=== PATIENT | male | born 1960 | race Caucasian/White ===

== ENCOUNTER → 2016-10-05 | Outpatient (CLI) | payer BC ==
[~2016-10-05] MED LIST: IOHEXOL 240 MG/ML 50ML VIAL. ONE; IOHEXOL 300 MG/ML 75 ML VIAL. IV ONE
--- NOTE | 2016-10-05 11:39 | RAD ---
Indication: Abdominal pain for one month with nausea and vomiting. Axial imaging through the abdomen and pelvis was performed after the administration of intravenous contrast. No prior studies are available for comparison. The lung bases are clear. There is a 15 mm low density in the right lobe the liver near the dome, likely a small cyst. No other liver mass is detected. The gallbladder is unremarkable. The pancreas and spleen are unremarkable. No adrenal mass is detected. Left kidney contains an 18 mm low density in the lower pole, likely a small cyst. The aorta is nonaneurysmal. No central retroperitoneal or mesenteric lymphadenopathy is detected. The small and large bowel loops are normal caliber. There is no ascites. The bladder and prostate are unremarkable. No pelvic lymphadenopathy is detected. Impression: Hepatic and renal cysts. The study is otherwise unremarkable. No acute feature is detected. PQRS Compliance Statement: One or more of the following individualized dose reduction techniques were utilized for this examination: 1. Automated exposure control 2. Adjustment of the mA and/or kV according to patient size 3. Use of iterative reconstruction technique
== END | disposition home or self-care (01) ==
LOC: CT 09:49
PROVIDERS: ATTEND Physician Assistant Medical
DX: N28.1 Cyst of kidney, acquired (principal)
CPT/HCPCS: 74177; Q9966; Q9967

== ENCOUNTER → 2016-10-12 | Outpatient (CLI) | payer BC ==
--- NOTE | 2016-10-12 10:28 | CARD ---
APPROVED REPORT EXAM: Two-dimensional and M-mode echocardiogram with Doppler and color Doppler. Other Information Quality : GoodHR: 57bpm Rhythm : Bradycardia INDICATION Tachycardia 2D DIMENSIONS RVDd3.3 (2.9-3.5cm)Left Atrium(2D)3.5 (1.6-4.0cm) IVSd0.8 (0.7-1.1cm)Aortic Root(2D)2.9 (2.0-3.7cm) LVDd4.2 (3.9-5.9cm)LVOT Diameter2.3 (1.8-2.4cm) PWd0.9 (0.7-1.1cm)LVDs2.7 (2.5-4.0cm) FS (%) 35.3 %SV52.1 ml LVEF(%)65.0 (>50%) Aortic Valve AoV Peak Rey.126.0cm/sAoV VTI28.5cm AO Peak GR.6.3mmHgLVOT Peak Rey.102.8cm/s LVOT VTI 22.85cmAO Mean GR.3mmHg ANA (VMAX)3.36wv3KPI (VTI)3.27cm2 Mitral Valve MV E Yvcacfjr31.0cm/sMV E Peak Gr.3mmHg MV DECEL [id number] A Kvvbqgqy50.0cm/s MV E Mean Gr.1mmHgE/A Ratio1.3 MV A [id number] Pulmonary Valve PV Peak Ctbpgmuo98.8cm/sPV Peak Grad.3mmHg Tricuspid Valve TR P. Nbfgcabj137de/sTR Peak Gr.26mmHg Pulmonary Vein S1 Ebnqafqe44.5cm/sD2 Mycpunxf27.1cm/s LEFT VENTRICLE The left ventricle is normal size. There is normal left ventricular wall thickness. The left ventricu lar systolic function is normal and the ejection fraction is within normal range. The Ejection Fracti on is 60-65%. There is normal LV segmental wall motion. The left ventricular diastolic function and f illing is normal for age. RIGHT VENTRICLE The right ventricle is normal size. There is normal right ventricular wall thickness. The right ventr icular systolic function is normal. ATRIA The left atrium size is normal. The right atrium size is normal. The interatrial septum is intact wit h no evidence for an atrial septal defect or patent foramen ovale as noted on 2-D or Doppler imaging. AORTIC VALVE The aortic valve is mildly thickened. The aortic valve is trileaflet. Doppler and Color Flow revealed trace aortic regurgitation. There is no significant aortic valvular stenosis. MITRAL VALVE The mitral valve leaflets are mildly thickened. There is no evidence of mitral valve prolapse. There is no mitral valve stenosis. Doppler and Color Flow revealed mild mitral regurgitation. TRICUSPID VALVE Doppler and Color Flow revealed mild tricuspid regurgitation. The pulmonary artery systolic pressure is estimated at 29 mmHg. There is no pulmonary hypertension. PULMONIC VALVE Doppler and Color Flow revealed mild pulmonic valvular regurgitation. There is no pulmonic valvular s tenosis. GREAT VESSELS The aortic root is normal in size. The ascending aorta is normal in size. The pulmonary artery is nor mal. The IVC is normal in size and collapses >50% with inspiration. PERICARDIAL EFFUSION There is no evidence of significant pericardial effusion. Critical Notification Critical Value: No <Conclusion> The left ventricular systolic function is normal and the ejection fraction is within normal range. Th e Ejection Fraction is 60-65%. There is normal LV segmental wall motion.
== END | disposition home or self-care (01) ==
LOC: ECHO 07:38
PROVIDERS: ATTEND Physician Assistant Medical
DX: I08.3 Combined rheumatic disorders of mitral, aortic and tricuspid valves (principal)
CPT/HCPCS: 93306

== ENCOUNTER → 2016-10-22 | Outpatient (CLI) | payer BC ==
[~2016-10-22] MED LIST changes: +BARIUM SULFATE 60% 355 ML SUSP PO ONE; +BARIUM SULFATE 98% 135 ML SUSP PO ONE; -IOHEXOL 240 MG/ML 50ML VIAL. ONE; -IOHEXOL 300 MG/ML 75 ML VIAL. IV ONE
--- NOTE | 2016-10-22 11:50 | RAD ---
Double contrast upper GI, 10/22/2016: History: Abdominal pain The study was performed utilizing gas-forming crystals and high density barium followed by regular liquid barium. 3.4 minutes of fluoroscopy time was utilized. 12 fluoroscopic spot images were recorded. The preliminary abdominal image is unremarkable. The swallowing mechanism is intact. The esophageal peristalsis is normal. A small sliding-type hiatal hernia is identified. No spontaneous gastroesophageal reflux was delineated. The stomach and duodenal bulb show no evidence of ulceration or mass. The visualized loops of proximal small bowel are unremarkable. IMPRESSION: 1. Small sliding-type hiatal hernia. 2. Otherwise unremarkable upper GI.
== END | disposition home or self-care (01) ==
LOC: DXRAD 11:01
PROVIDERS: ATTEND Internal Medicine Gastroenterology
DX: K44.9 Diaphragmatic hernia without obstruction or gangrene (principal); R11.2 Nausea with vomiting, unspecified
CPT/HCPCS: 74241

== ENCOUNTER → 2016-11-11 | Outpatient (CLI) | payer BC ==
[~2016-11-11] VITALS: Ht 170.2 cm; Wt 79.4 kg
--- NOTE | 2016-11-11 08:51 | RAD ---
Ultrasound of the right upper quadrant of the abdomen 11/11/2016 Clinical history: Intermittent epigastric pain and nausea and vomiting for 4 months. Technique: A real-time ultrasound examination of the right upper quadrant of the abdomen was performed. Multiple images were obtained. Findings: The gallbladder is well-distended. No gallstones are visualized. The common bile duct measures 2 mm in diameter which is within normal limits. The liver is normal in size measuring 15.3 cm in length. Within the left lobe of the liver a 1.3 cm rounded anechoic structure is seen. This is consistent with a hepatic cyst. No additional abnormality of the liver is seen. The visualized portions of the pancreas and right kidney are within normal limits. No free fluid is noted. Impression: Essentially negative study.
[2016-11-11] MEDS: SINCALIDE 1.59 MCG in IV NORMAL SALINE 50ML 30 ML IV ONE (10:21)
--- NOTE | 2016-11-11 11:41 | RAD ---
Hepatobiliary scan with gallbladder ejection fraction calculation 11/11/2016 Clinical History: Right upper quadrant abdominal pain with nausea and vomiting for the last 3 months.. Technique: After the intravenous administration of 5.5 mCi of Technetium 99m Choletec, imaging of the right upper quadrant of the abdomen was performed using the gamma camera for 60 minutes. 1.59 mcg of CCK was then infused intravenously over 30 minutes. Continued imaging of the right upper quadrant abdomen was performed. A gallbladder ejection fraction was calculated. Findings: Normal uptake and excretion of the radionuclide by the liver is seen. There is no evidence of cystic or common bile duct obstruction. The gallbladder is within normal limits in size and configuration. During the infusion CCK mild emptying of the gallbladder is seen. The gallbladder ejection fraction is 27.2% which is diminished. These findings are consistent with biliary dyskinesia. Impression: Biliary dyskinesia.
== END | disposition home or self-care (01) ==
LOC: US 07:34
PROVIDERS: ATTEND Internal Medicine Gastroenterology
DX: K82.8 Other specified diseases of gallbladder (principal)
CPT/HCPCS: 76705; 78226; 96374; 96375; A9537; J2805

== ENCOUNTER → 2017-12-23 | Outpatient (CLI) | payer BC ==
--- NOTE | 2017-12-23 09:05 | RAD ---
Abdomen, 2 views, 12/23/2017: HISTORY: Nausea and vomiting x2 days There is gas and stool scattered throughout the colon in a nonspecific pattern. There is no evidence of organomegaly. Lower pelvic calcifications on the left are probably phleboliths. No other abnormal abdominal calcification is seen. No free air is evident beneath the left hemidiaphragm. The right hemidiaphragm was not included on this exam. If there is clinical concern of possible perforation, repeat upright abdominal imaging should be performed to include the right hemidiaphragm. IMPRESSION: No acute abdominal abnormality is detected, although the diaphragm was not completely included on this study as described above. Electronically signed by: Art Fleming MD (12/23/2017 9:02 AM) [facility]
== END | disposition home or self-care (01) ==
LOC: DXRAD 08:28
PROVIDERS: ATTEND Physician Assistant
DX: R11.2 Nausea with vomiting, unspecified (principal)
CPT/HCPCS: 74021